=== PATIENT | female | born 1975 | race Caucasian/White ===

== ENCOUNTER → 2017-06-11 | Outpatient (CLI) | payer BC, OTHER ==
--- NOTE | 2017-06-11 14:06 | DIAGNOSTIC IMAGING REPORT ---
LEFT SHOULDER 2 VIEWS CLINICAL HISTORY: Left shoulder pain. FINDINGS: 2 views of left shoulder are compared to study dated 02/03/2009. The skeletal structures are well mineralized. No fracture or dislocation is seen. The glenohumeral and acromioclavicular joints appear preserved. The overlying soft tissues are within normal limits. The imaged left lung parenchyma appears clear. IMPRESSION: No acute bony abnormality is seen in left shoulder. Electronically signed by: Jose Martin [place] M.D. 06/11/2017 2:05 PM Dictated Date/Time: 06/11/2017 2:04 PM
== END | disposition home or self-care (01) ==
LOC: C.RDSM 13:40
PROVIDERS: ATTEND Physician Assistant
DX: M25.512 Pain in left shoulder (principal)